=== PATIENT | female | born 1990 | race Caucasian/White ===

== ENCOUNTER 2019-08-03 22:29 | Emergency (ER) | payer OTHER, SELFPAY ==
--- OUTSIDE RECORDS SUMMARY | 2019-08-03 22:31 | XMS REPORT ---
:1990 Author Organization [facility] t Address [address] [place] [address] Dr. Johnson [address] [place] [id number] Care Team Providers Name Role Phone Unavailable Unavailable Unavailable Problems This patient has no known problems. Allergies, Adverse Reactions, Alerts This patient has no known allergies or adverse reactions. Medications This patient has no known medications.
[2019-08-03] MEDS ORDERED: PEN G BENZ LA 1.2MU/2ML SYRINGE IM ONE (23:09)
--- NOTE | 2019-08-03 23:18 | EDPHYS ---
Physician Documentation [facility] Name: Debra Sanchez Age: 29 yrs Sex: Female : 1990 Arrival Date: 08/03/2019 Time: 22:31 Bed 25 Private MD: ED Physician Ros Bender HPI: 08/02 22:41 This 29 yrs old Female presents to ER via Ambulatory with complaints of jmm Fever, Sore Throat. 22:41 The patient presents with sore throat. Onset: The symptoms/episode began/occurred jmm gradually, 3 day(s) ago. Modifying factors: The symptoms are alleviated by nothing, the symptoms are aggravated by nothing. Associated signs and symptoms: Pertinent positives: fever, Sore throat Pertinent negatives cough. This is a 29 year old female with no chronic medical conditions that presents to the ED with complaints of sore throat beginning 3 days ago with fever developing today. Patient denies cough. Denies shortness of breath. . 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 - Social history:: Smoking status: . ROS: 22:41 Constitutional: Positive for body aches, fever. jmm 22:41 ENT: Positive for sore throat. 22:41 Respiratory: Negative for cough, shortness of breath. 22:41 All other systems are negative. Exam: 22:41 Constitutional: This is a well developed, well nourished patient who is awake, alert, jmm and in no acute distress. Head/Face: atraumatic. Eyes: EOMI, no conjunctival erythema appreciated 22:41 Neck: Trachea midline, Supple Chest/axilla: Normal chest wall appearance and motion. 22:41 Respiratory: Normal respirations, no respiratory distress appreciated Abdomen/GI: Non distended, soft Back: Normal ROM Skin: General appearance color normal MS/ Extremity: Moves all extremities, no obvious deformities appreciated, no edema noted to the lower extremities Neuro: Awake and alert, normal gait Psych: Behavior is normal, Mood is normal, Patient is cooperative and pleasant 22:41 ENT: Posterior pharynx: Tonsils: bilaterally enlarged, with erythema, with exudate, Uvula: midline, erythema, that is moderate, exudate, that is moderate, peritonsillar mass, is not appreciated. 22:41 Cardiovascular: Rate: tachycardic, Rhythm: regular, Pulses: no pulse deficits are appreciated. Vital Signs: 22:41 BP 138 / 90; Pulse 107; Resp 17 S; Temp 99.1(O); Pulse Ox 100% on R/A; Weight 95.25 kg jd3 (R); Height 5 ft. 6 in. (167.64 cm) (R); Pain 4/10; 23:24 BP 119 / 71; Pulse 74; Resp 14; Temp 98.9(O); Pulse Ox 100% on R/A; Pain 0/10; ls4 22:41 Body Mass Index 33.89 (95.25 kg, 167.64 cm) jd3 MDM: 22:41 Patient medically screened. zunilda 23:15 Data reviewed: vital signs, nurses notes. Counseling: I had a detailed discussion with zunilda the patient and/or guardian regarding: the historical points, exam findings, and any diagnostic results supporting the discharge/admit diagnosis, lab results, the need for outpatient follow up, to return to the emergency department if symptoms worsen or persist or if there are any questions or concerns that arise at home. ED course: Patient is alert and non toxic in appearance in the ED. Patient is otherwise given strict return precautions. Patient understood and agrees with the plan of care. . 08/02 22:48 Order name: Strep; Complete Time: 23:12 [facility] 08/02 23:13 Order name: Throat Culture EDMS Administered Medications: 23:05 Drug: Bicillin L-A 1.2 million units Route: IM; Site: left ventrogluteal; ls4 23:22 Follow up: Response: No adverse reaction ls4 Disposition: 08/03 06:51 Co-signature as Attending Physician, Ros Bender MD. ma2 Disposition: 08/03/19 23:16 Discharged to Home. Impression: Acute pharyngitis. - Condition is Stable. - Discharge Instructions: Pharyngitis. - Medication Reconciliation Form, Thank You Letter, Antibiotic Education, Prescription Opioid Use form. - Follow up: Private Physician; When: 2 - 3 days; Reason: Recheck today's complaints, Continuance of care, Re-evaluation by your physician. Signatures: Dispatcher [employer] Nik Alford PA PA jmm Davies, Jonathon, RN RN jd3 Ros Bender MD MD ma2 Kayla Godinez RN RN ls4 Corrections: (The following items were deleted from the chart) 08/02 23:34 23:16 08/03/2019 23:16 Discharged to Home. Impression: Acute pharyngitis. Condition is ls4 Stable. Forms are Medication Reconciliation Form, Thank You Letter, Antibiotic Education, Prescription Opioid Use. Follow up: Private Physician; When: 2 - 3 days; Reason: Recheck today's complaints, Continuance of care, Re-evaluation by your physician. zunilda
--- NOTE | 2019-08-03 23:18 | ER ---
Nurse's Notes [facility] Name: Debra Sanchez Age: 29 yrs Sex: Female : 1990 Arrival Date: 08/03/2019 Time: 22:31 Bed 25 Private MD: Diagnosis: Acute pharyngitis Presentation: 08/02 22:39 Chief complaint: Patient states: "I am having throat pain with blisters in the back of jd3 my throat as well as fever.". Coronavirus screen: Patient denies a cough. Patient denies shortness of breath or difficulty breathing. Patient reports a measured and/or subjective temperature greater than 100.4F. Patient denies travel on a cruise ship or to a country the [facility] currently lists as an affected area. Patient denies contact with known and/or suspected case of COVID-19. Ebola Screen: Patient negative for fever greater than or equal to 101.5 degrees Fahrenheit, and additional compatible Ebola Virus Disease symptoms. Initial Sepsis Screen: Does the patient meet any 2 criteria? No. Patient's initial sepsis screen is negative. Does the patient have a suspected source of infection? No. Patient's initial sepsis screen is negative. Risk Assessment: Do you want to hurt yourself or someone else? Patient reports no desire to harm self or others. Onset of symptoms was August 03, 2019. 22:39 Method Of Arrival: Ambulatory jd3 22:39 Acuity: KYM 4 jd3 Triage Assessment: 23:25 General: Appears in no apparent distress. Behavior is calm, cooperative. Pain: ls4 Complains of pain in uvula, left aspect of posterior pharynx and right aspect of posterior pharynx. EENT: Throat is reddened has enlarged tonsils on right on left. 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 - Social history:: Smoking status: . Screenin:26 Abuse screen: Denies threats or abuse. Denies injuries from another. Nutritional ls4 screening: No deficits noted. Tuberculosis screening: No symptoms or risk factors identified. Fall Risk None identified. Assessment: 22:40 Respiratory: Airway is patent Respiratory effort is even, unlabored, Breath sounds are ls4 clear bilaterally. 23:27 Reassessment: Patient appears in no apparent distress at this time. Patient and/or ls4 family updated on plan of care and expected duration. Pain level reassessed. Patient is alert, oriented x 3, equal unlabored respirations, skin warm/dry/pink. Vital Signs: 22:41 BP 138 / 90; Pulse 107; Resp 17 S; Temp 99.1(O); Pulse Ox 100% on R/A; Weight 95.25 kg jd3 (R); Height 5 ft. 6 in. (167.64 cm) (R); Pain 4/10; 23:24 BP 119 / 71; Pulse 74; Resp 14; Temp 98.9(O); Pulse Ox 100% on R/A; Pain 0/10; ls4 22:41 Body Mass Index 33.89 (95.25 kg, 167.64 cm) j ED Course: 22:31 Patient arrived in ED. ds1 22:34 Nik Gruber PA is PHCP. [facility] 22:34 Ros Bender MD is Attending Physician. [facility] 22:40 Triage completed. jd3 22:42 Arm band placed on. jd3 22:46 Kayla Godinez, BROWN is Primary Nurse. ls4 23:26 Patient has correct armband on for positive identification. Bed in low position. Call ls4 light in reach. Side rails up X 1. quality assurance monitor on. Pulse ox on. NIBP on. Verbal reassurance given. 23:26 No provider procedures requiring assistance completed. Patient did not have IV access ls4 during this emergency room visit. Administered Medications: 23:05 Drug: Bicillin L-A 1.2 million units Route: IM; Site: left ventrogluteal; ls4 23:22 Follow up: Response: No adverse reaction ls4 Outcome: 23:16 Discharge ordered by . [facility] 23:28 Discharged to home ambulatory. ls4 23:28 Condition: good 23:28 Discharge instructions given to patient, Instructed on discharge instructions, follow up and referral plans. medication usage, Demonstrated understanding of instructions, follow-up care, medications. 23:34 Patient left the ED. ls4 Signatures: Nik Gruber PA PA jmm Sanford, Demi ds1 Veto Abebe RN RN jd3 Kayla Godinez RN RN ls4
[2019-08-03 23:43] VITALS: O2SAT 100
[2019-08-03 23:44] VITALS: BP 119/71; TEMP 98.9
== END 2019-08-03 23:34 | disposition home or self-care (01) ==
LOC: ER 22:29
DX: J02.9 Acute pharyngitis, unspecified (principal)
CPT/HCPCS: 87070; 87081; 96372; 99284; J0561

== ENCOUNTER 2022-10-20 10:23 | Emergency (ER) | payer SELFPAY ==
--- OUTSIDE RECORDS SUMMARY | 2022-10-20 10:52 | XMS REPORT | Continuity of Care Document ---
:1990 Author Organization [facility] t Address [address] [facility] [address] [place] [address] Care Team Providers Name Role Phone LYNETTE ROBERTSSHARIFCinda Henriquez Primary Care Physician Unavailable JOCELIN VIRAMONTES Attending Clinician Unavailable Payers Payer Name Policy Type Policy Number Effective Date Expiration Date Chun pate [id number] 2016 00:00:00 Problems This patient has no known problems. Allergies, Adverse Reactions, Alerts Allergy Allergy Status Severity Reaction(s) Onset Inactive Treating Comm ents Source Name Type Date Date Clinician NO KNOWN Drug Active [facility] Medications This patient has no known medications. Procedures This patient has no known procedures. Encounters Start End Encounter Admission Attending Care Care Encounter Source Date/Time Date/Time Type Type Clinicians Facility Department ID 2021-07-21 2021-07-21 Outpatient R MAXI VIRAMONTES [facility] [id number] [facility] 09:30:00 09:30:00 JOCELIN sharma [facility] Results This patient has no known results.
[2022-10-20 11:01] LABS: Specific Gravity 1.007 (1.005-1.030); Urine Bacteria None Seen /HPF (<20); Urine Bilirubin NEGATIVE (Negative); Urine Blood 3+ (Negative); Urine Clarity Clear (Clear); Urine Color Colorless (Yellow); Urine Glucose NEGATIVE (Negative); Urine Mucus Slight /HPF (None Seen); Urine Protein NEGATIVE (Negative); Urine RBC <5 /HPF (None Seen); Urine Urobilinogen Normal (Normal); Urine pH 6.5 (5.0-7.0)
[2022-10-20 11:05] LABS: Absolute Lymphocytes (CBC) 1.9 K/uL (0.7-4.9); Hematocrit 40.3 % (36.0-45.0); Lymphocytes % 16.4 % (15.3-44.8); MCV 94.6 fL (80-100); MPV 8.9 fL (7.6-11.3); RBC Red Blood Cell Count 4.26 M/uL (3.86-4.86)
[2022-10-20] MEDS ORDERED: MECLIZINE HCL 12.5 MG TAB ONE (11:08)
[2022-10-20] MEDS ORDERED: ONDANSETRON 4 MG/2 ML VIAL ONE (11:08)
[2022-10-20 11:21] LABS: BUN Blood Urea Nitrogen 11 mg/dL (7-18); Bicarbonate 28 mEq/L (21-32); Glomerular Filtration Rate 96 ml/min (=/>90); Glucose Level 115 mg/dL (74-106); Potassium 3.3 mEq/L (3.5-5.1); Sodium Level 137 mEq/L (136-145)
[2022-10-20 11:25] LABS: Troponin High Sensitivity < 3.0 pg/mL (<58.9)
--- NOTE | 2022-10-20 11:30 | RAD REPORT ---
EXAM DESCRIPTION: CT - Head Brain Wo Cont - 10/20/2022 11:25 am CLINICAL HISTORY: DIZZINESS Headache, drowsiness, dizziness COMPARISON: Head angio dated 10/20/2022; Neck Angio dated 10/20/2022 TECHNIQUE: All CT scans are performed using dose optimization technique as appropriate and may inclu de automated exposure control or mA/KV adjustment according to patient size. FINDINGS: No intracranial hemorrhage, hydrocephalus or extra-axial fluid collection.No areas of brai n edema or evidence of midline shift. The paranasal sinuses and mastoids are clear. The calvarium is intact. IMPRESSION: No acute intracranial abnormality.
--- NOTE | 2022-10-20 11:35 | RAD REPORT ---
EXAM DESCRIPTION: CT - Head angio - 10/20/2022 11:25 am CLINICAL HISTORY: DIZZINESS Headache, drowsiness, CVA symptomology COMPARISON: No comparisons TECHNIQUE: CT angiography of the head was performed with MIPs. All CT scans are performed using dose optimization technique as appropriate and may include automated exposure control or mA/KV adjustment according to patient size. FINDINGS: No evidence of large vessel occlusion. No evidence of aneurysm is detected. No flow-limiti ng stenosis or vascular malformation identified. Antegrade flow is seen in the vertebral arteries. The vertebral arteries are codominant. The visualized dural venous sinuses are patent. IMPRESSION: No significant flow abnormality is detected.
--- NOTE | 2022-10-20 11:38 | RAD REPORT ---
EXAM DESCRIPTION: CT - Neck Angio - 10/20/2022 11:25 am CLINICAL HISTORY: dizziness Headache, drowsiness, CVA symptomology COMPARISON: No comparisons TECHNIQUE: CT angiography of the neck vessels was performed with MIPs. All CT scans are performed using dose optimization technique as appropriate and may include automated exposure control or mA/KV adjustment according to patient size. FINDINGS: A left aortic arch is identified with normal three vessel configuration of the great vesse ls. No significant flow abnormality is seen of the common carotid bilaterally. No significant stenosis is identified involving the cervical segments of both internal carotid arteri es. Normal flow is seen within both vertebral arteries. Mild lower cervical degenerative changes. IMPRESSION: No significant flow abnormality of the neck vessels is identified. NASCET criteria used. Mild 0-49% stenosis Moderate 50-69% stenosis Severe 70-99% stenosis
--- NOTE | 2022-10-20 12:42 | EDPHYS ---
Physician Documentation [facility] Name: Debra Sanchez Age: 32 yrs Sex: Female : 1990 Arrival Date: 10/20/2022 Time: 10:23 Bed 19 Private MD: ED Physician Phu Cruz HPI: 10/20 10:43 This 32 yrs old Female presents to ER via Ambulatory with complaints of Dizziness. m 10:43 The patient presents with dizziness. Onset: The symptoms/episode began/occurred jmm acutely, just prior to arrival. Modifying factors: The symptoms are alleviated by nothing, the symptoms are aggravated by movement of head, standing up, changing position. Associated signs and symptoms: Pertinent negatives:. The patient has experienced similar episodes in the past. Historical: - Allergies: 10:54 No Known Allergies; ss - Home Meds: 10:54 None [Active]; ss - PMHx: 10:54 None; ss - PSHx: 10:54 Cholecystectomy; section; ss - Immunization history:: Adult Immunizations up to date, Client reports receiving the 2nd dose of the Covid vaccine. ROS: 10:43 Constitutional: Negative for fever, chills, and weight loss, Cardiovascular: Negative jmm for chest pain, palpitations, and edema, Respiratory: Negative for shortness of breath, cough, wheezing, and pleuritic chest pain, Abdomen/GI: Negative for abdominal pain, nausea, vomiting, diarrhea, and constipation. 10:43 Neuro: Positive for dizziness. 10:43 All other systems are negative. Exam: 10:43 Constitutional: This is a well developed, well nourished patient who is awake, alert, jmm and in no acute distress. Head/Face: atraumatic. 10:43 ENT: Moist Mucus Membranes Neck: Trachea midline, Supple Chest/axilla: Normal chest wall appearance and motion. Cardiovascular: Regular rate and rhythm. No edema appreciated Respiratory: Normal respirations, no respiratory distress appreciated Abdomen/GI: Non distended Back: Normal ROM Skin: General appearance color normal MS/ Extremity: Moves all extremities, no obvious deformities appreciated, no edema noted to the lower extremities Neuro: Awake and alert Psych: Behavior is normal, Mood is normal, Patient is cooperative and pleasant 10:43 Eyes: Nystagmus: Horizontal nystagmus noted, fatigable. Vital Signs: 10:51 BP 147 / 94; Pulse 87; Resp 16; Temp 97.7(TE); Pulse Ox 100% on R/A; Weight 104.33 kg; ss Height 5 ft. 6 in. ; Pain 0/10; 11:10 BP 147 / 94; Pulse 77; Resp 18; Pulse Ox 100% on R/A; ld1 10:51 Body Mass Index 37.12 (104.33 kg, 167.64 cm) ss 10:51 Pain Scale: Adult ss MDM: 10:43 Patient medically screened. [facility] 15:12 Differential diagnosis: CVA, TIA, vertigo, VBI. Data reviewed: vital signs, nurses [facility] notes, lab test result(s), EKG, radiologic studies, CT scan. Consideration of Admission/Observation Escalation of care including admission/observation considered. I considered the following discharge prescriptions or medication management in the emergency department Medications were administered in the Emergency Department. See MAR. Counseling: I had a detailed discussion with the patient and/or guardian regarding: the historical points, exam findings, and any diagnostic results supporting the discharge/admit diagnosis, lab results, radiology results, the need for outpatient follow up, to return to the emergency department if symptoms worsen or persist or if there are any questions or concerns that arise at home. 10/20 10:43 Order name: Basic Metabolic Panel; Complete Time: 11: [facility] 10/20 10:43 Order name: CBC with Diff; Complete Time: 11:13 [facility] 10/20 10:43 Order name: Troponin HS; Complete Time: 11: [facility] 10/20 10:43 Order name: Urinalysis w/ reflexes; Complete Time: 11: [facility] 10/20 10:43 Order name: PREGU; Complete Time: 11: [facility] 10/20 10:44 Order name: CT Head Brain wo Cont; Complete Time: 11:36 [facility] 10/20 10:44 Order name: CT Head Angio; Complete Time: 11:36 [facility] 10/20 10:44 Order name: CT Neck Angio; Complete Time: 11:55 [facility] 10/20 10:43 Order name: EKG; Complete Time: 10:44 [facility] 10/20 10:43 Order name: Cardiac monitoring; Complete Time: 10: [facility] 10/20 10:43 Order name: EKG - Nurse/Tech; Complete Time: 10:49 [facility] 10/20 10:43 Order name: IV Saline Lock; Complete Time: 10:55 [facility] 10/20 10:43 Order name: Labs collected and sent; Complete Time: 10:55 [facility] 10/20 10:43 Order name: O2 Per Protocol; Complete Time: 10:49 [facility] 10/20 10:43 Order name: O2 Sat Monitoring; Complete Time: 10:49 [facility] Administered Medications: 11:04 Drug: Ondansetron IVP 4 mg Route: IVP; Site: left antecubital; ld1 11:05 Drug: Meclizine PO 50 mg Route: PO; ld1 Disposition: 10/21 09:41 Co-signature as Attending Physician, Phu Cruz MD I reviewed the patient's care rt provided by the Advanced Practice Provider and agree with the diagnosis and treatment plan. Disposition Summary: 10/20/22 12:41 Discharge Ordered Location: Home [facility] Condition: Stable [facility] Diagnosis - Other peripheral vertigo [facility] Followup: [facility] - With: Private Physician - When: 2 - 3 days - Reason: Recheck today's complaints, Continuance of care, Re-evaluation by your physician Followup: [facility] - With: Judi Ramon MD - When: 2 - 3 days - Reason: Recheck today's complaints, Continuance of care, Re-evaluation by your physician Discharge Instructions: - Discharge Summary Sheet [facility] - Vertigo [facility] - How to Perform the Maribel Maneuver [facility] Forms: - Medication Reconciliation Form [facility] - Thank You Letter [facility] - Antibiotic Education [facility] - Prescription Opioid Use [facility] - [email or web address] [facility] Prescriptions: - Meclizine 25 mg Oral Tablet - take 1 tablet by ORAL route every 8 hours As needed; 30 tablet; Refills: 0, [facility] Product Selection Permitted Signatures: Dispatcher [employer] Nik Alford PA PA [facility] Lila Toro RN RN ss Sims, Lauren, RN RN ld1 Phu Cruz MD MD rt
--- NOTE | 2022-10-20 12:42 | ER ---
Nurse's Notes [facility] Name: Debra Sanchez Age: 32 yrs Sex: Female : 1990 Arrival Date: 10/20/2022 Time: 10:23 Bed 19 Private MD: Diagnosis: Other peripheral vertigo Presentation: 10/20 10:51 Chief complaint: Patient states: intermittent dizziness x months. Pt reports she had an ss episode of dizziness this morning that felt different. Coronavirus screen: Client denies travel out of the [place] in the last 14 days. Ebola Screen: Patient denies exposure to infectious person. Patient denies travel to an Ebola-affected area in the 21 days before illness onset. Initial Sepsis Screen: Does the patient meet any 2 criteria? No. Patient's initial sepsis screen is negative. Does the patient have a suspected source of infection? No. Patient's initial sepsis screen is negative. Risk Assessment: Do you want to hurt yourself or someone else? Patient reports no desire to harm self or others. Onset of symptoms is unknown. 10:51 Method Of Arrival: Ambulatory ss 10:51 Acuity: KYM 3 ss Triage Assessment: 12:50 General: Appears in no apparent distress. comfortable, Behavior is calm, cooperative, ld1 appropriate for age. Pain: Denies pain. Neuro: Level of Consciousness is awake, alert, obeys commands, Oriented to person, place, time, situation. Historical: - Allergies: 10:54 No Known Allergies; ss - Home Meds: 10:54 None [Active]; ss - PMHx: 10:54 None; ss - PSHx: 10:54 Cholecystectomy; section; ss - Immunization history:: Adult Immunizations up to date, Client reports receiving the 2nd dose of the Covid vaccine. Screenin:49 [facility] ED Fall Risk Assessment (Adult) History of falling in the last 3 months, ld1 including since admission No falls in past 3 months (0 pts). Abuse screen: Denies threats or abuse. Denies injuries from another. Nutritional screening: No deficits noted. Tuberculosis screening: No symptoms or risk factors identified. Vital Signs: 10:51 BP 147 / 94; Pulse 87; Resp 16; Temp 97.7(TE); Pulse Ox 100% on R/A; Weight 104.33 kg; ss Height 5 ft. 6 in. ; Pain 0/10; 11:10 BP 147 / 94; Pulse 77; Resp 18; Pulse Ox 100% on R/A; ld1 10:51 Body Mass Index 37.12 (104.33 kg, 167.64 cm) ss 10:51 Pain Scale: Adult ss ED Course: 10:25 Patient arrived in ED. rg4 10:27 Nik Gruber PA is PHCP. jmm 10:27 hPu Cruz MD is Attending Physician. jmm 10:54 Triage completed. ss 10:54 Lenora Almeida, BROWN is Primary Nurse. ld1 10:54 Arm band placed on right wrist. ss 10:55 Urinalysis w/ reflexes Sent. ld1 10:55 Inserted saline lock: 20 gauge in right antecubital area, using aseptic technique. ld1 Blood collected. 11:05 Basic Metabolic Panel Sent. ld1 11:05 CBC with Diff Sent. ld1 11:05 Troponin HS Sent. ld1 11:27 CT Head Brain wo Cont In Process Unspecified. EDMS 11:27 CT Head Angio In Process Unspecified. EDMS 11:27 CT Neck Angio In Process Unspecified. EDMS 12:42 Judi Ramon MD is Referral Physician. jmm 12:49 Patient has correct armband on for positive identification. Placed in gown. Bed in low ld1 position. Call light in reach. Side rails up X2. operation agent on. Pulse ox on. NIBP on. Door closed. Noise minimized. Warm blanket given. 12:49 No provider procedures requiring assistance completed. IV discontinued, intact, ld1 bleeding controlled, No redness/swelling at site. Administered Medications: 11:04 Drug: Ondansetron IVP 4 mg Route: IVP; Site: left antecubital; ld1 11:05 Drug: Meclizine PO 50 mg Route: PO; ld1 Medication: 12:50 VIS not applicable for this client. ld1 Outcome: 12:41 Discharge ordered by . jmm 12:49 Discharged to home ambulatory. ld1 12:49 Condition: stable 12:49 Discharge instructions given to patient, Instructed on discharge instructions, follow up and referral plans. medication usage, Demonstrated understanding of instructions, follow-up care, medications, Prescriptions given X 1. 12:50 Patient left the ED. ld1 Signatures: Dispatcher [employer] Nik Alford PA PA jmm Blanchard, Shelby, RN RN Jolene Gilbert4 Lenora Almeida, RN RN ld1
[2022-10-20 13:35] VITALS: BP 147/94; TEMP 97.7; O2SAT 100
--- NOTE | 2022-10-20 20:34 | EKG ---
Test Date: 2022-10-20 Test Time: 10:53:46 Radiographic Technologist: JESSICA MEASUREMENT RESULTS: Intervals: Rate: 100 IA: 164 QRSD: 92 QT: 344 QTc: 443 [place]: P: 61 IA: 164 QRS: 65 T: 41 INTERPRETIVE STATEMENTS: Normal sinus rhythm Normal ECG No previous ECG available for comparison Electronically Signed On 10-20-22 20:32:37 CDT by Migel Mcgill
== END 2022-10-20 12:50 | disposition home or self-care (01) ==
LOC: ER 10:23
DX: H81.399 Other peripheral vertigo, unspecified ear (principal)
CPT/HCPCS: 36415; 70450; 70496; 70498; 80048; 81001; 81025; 84484; 85025; 93005; J2405; J8597; Q9967

== ENCOUNTER 2023-07-28 21:46 | Emergency (ER) | payer SELFPAY ==
[2023-07-28] MEDS ORDERED: KETOROLAC 30 MG/ML INJ ONE (23:22)
[2023-07-28] MEDS ORDERED: ONDANSETRON 4 MG/2 ML VIAL ONE (23:22)
[2023-07-28] MEDS ORDERED: NA CHLORIDE 0.9% 1,000 ML ONE (23:23)
[2023-07-28] MEDS ORDERED: MORPHINE 4 MG/ML SYR ONE (23:23)
[2023-07-28 23:45] LABS: Absolute Eosinophils 0.1 K/uL (0-0.5); Absolute Lymphocytes (CBC) 1.2 K/uL (0.7-4.9); Absolute Monocytes 0.9 K/uL (0.1-1.3); Absolute Neutrophil 9.8 K/uL (1.8-8.0); Basophils % 0.4 % (0-1.3); Eosinophils % 0.6 % (0-4.4); Hematocrit 38.7 % (36.0-45.0); Hemoglobin 13.2 g/dL (12.0-15.0); Lymphocytes % 10.2 % (15.3-44.8); MCH 31.5 pg (27.0-35.0); MCHC 34.2 g/dL (32.0-36.0); MCV 92.1 fL (80-100); MPV 9.3 fL (7.6-11.3); Monocytes % 7.4 % (3.3-12.3); Neutrophils % 81.4 % (41.7-73.7); Platelets 301 thou/uL (152-406); RBC Red Blood Cell Count 4.21 M/uL (3.86-4.86); Red Cell Distribution Width 13.6 % (12.1-15.2)
[2023-07-29 00:11] LABS: Albumin 3.5 g/dL (3.4-5.0); Albumin/Globulin Ratio 0.9 (1.1-1.8); Anion Gap 5.9 mEq/L (5.0-15.0); Bilirubin Total 0.6 mg/dL (0.2-1.0); Globulin 3.8 g/dL (2.3-3.5); Potassium 2.9 mEq/L (3.5-5.1); Protein, Total 7.3 g/dL (6.4-8.2)
[2023-07-29 00:14] LABS: Specific Gravity 1.024 (1.005-1.030)
[2023-07-29 00:16] LABS: Calcium Oxalate Crystals- Ur Few /HPF (None Seen); Specific Gravity 1.024 (1.005-1.030); Urine Bacteria None Seen /HPF (<20); Urine Bilirubin NEGATIVE (Negative); Urine Blood 1+ (Negative); Urine Clarity Extremely Turbid (Clear); Urine Color Yellow (Yellow); Urine Culture Reflex Order NOT NEEDED; Urine Glucose NEGATIVE (Negative); Urine Ketones NEGATIVE (Negative); Urine Microscopic Reflex YN ORDER UMIC; Urine Mucus Slight /HPF (None Seen); Urine Nitrite NEGATIVE (Negative); Urine Protein TRACE (Negative); Urine Urobilinogen Normal (Normal); Urine WBC <5 /HPF (<5)
--- NOTE | 2023-07-29 01:55 | ER ---
Nurse's Notes [facility] Name: Debra Sanchez Age: 33 yrs Sex: Female : 1990 Arrival Date: 07/28/2023 Time: 21:46 Bed 17 Private MD: Diagnosis: Other viral enteritis;Acute Viral Gastroenteritis , Nausea, vomiting , diarrhea Presentation: 07/27 22:19 Chief complaint: Patient states: Abdominal cramping onset yesterday that got worse cm10 today. Pt also reports diarrhea and 1 episode of vomiting. Coronavirus screen: Client denies travel out of the [place] in the last 14 days. At this time, the client does not indicate any symptoms associated with coronavirus-19. Ebola Screen: Patient denies travel to an Ebola-affected area in the 21 days before illness onset. No symptoms or risks identified at this time. Initial Sepsis Screen: Does the patient meet any 2 criteria? HR > 90 bpm. Does the patient have a suspected source of infection? No. Patient's initial sepsis screen is negative. Risk Assessment: Do you want to hurt yourself or someone else? Patient reports no desire to harm self or others. Onset of symptoms was July 28, 2023. 22:19 Method Of Arrival: Ambulatory cm10 22:19 Acuity: KYM 3 cm10 Triage Assessment: 22:23 General: Appears in no apparent distress. comfortable, Behavior is calm, cooperative. cm10 Pain: Complains of pain in abdomen Pain currently is 10 out of 10 on a pain scale. Quality of pain is described as crampy, Pain began 2-3 days ago. Is intermittent. Neuro: No deficits noted. Level of Consciousness is awake, alert, obeys commands, Oriented to person, place, time, situation. Historical: - Allergies: 22:22 No Known Allergies; cm10 - Home Meds: 22:22 None [Active]; cm10 - PMHx: 22:22 None; cm10 - PSHx: 22:22 section; Cholecystectomy; cm10 - Immunization history:: Adult Immunizations up to date. - Infectious Disease History:: Denies. - Social history:: Smoking status: Patient denies any tobacco usage or history of. - Family history:: not pertinent. Screenin:33 [facility] ED Fall Risk Assessment (Adult) History of falling in the last 3 months, tm6 including since admission No falls in past 3 months (0 pts) Confusion or Disorientation No (0 pts) Intoxicated or Sedated No (0 pts) Impaired Gait No (0 pts) Mobility Assist Device Used No (0 pt) Altered Elimination No (0 pt) Score/Fall Risk Level 0 - 2 = Low Risk Oriented to surroundings, Maintained a safe environment. Abuse screen: Denies threats or abuse. Denies injuries from another. Nutritional screening: No deficits noted. Tuberculosis screening: No symptoms or risk factors identified. Assessment: 23:33 General: Appears in no apparent distress. Behavior is calm, cooperative. Pain: tm6 Complains of pain in abdomen Pain currently is 4 out of 10 on a pain scale. Quality of pain is described as sharp, shooting, Pain began 1 day ago. Is intermittent. Neuro: Level of Consciousness is awake, alert, obeys commands, Oriented to person, place, time, situation. Cardiovascular: Patient's skin is warm and dry. Respiratory: Airway is patent Respiratory effort is even, unlabored, Respiratory pattern is regular, symmetrical. GI: Abdomen is round non-distended, Bowel sounds present X 4 quads. Abd is soft and non tender X 4 quads. Reports upper abdominal pain, cramping, diarrhea, nausea, vomiting. : No signs and/or symptoms were reported regarding the genitourinary system. EENT: No signs and/or symptoms were reported regarding the EENT system. Derm: No signs and/or symptoms reported regarding the dermatologic system. Musculoskeletal: No signs and/or symptoms reported regarding the musculoskeletal system. 07/28 00:42 Reassessment: Patient and/or family updated on plan of care and expected duration. Pain tm6 level reassessed. Patient is alert, oriented x 3, equal unlabored respirations, skin warm/dry/pink. Patient states feeling better. 02:13 Reassessment: Patient and/or family updated on plan of care and expected duration. Pain tm6 level reassessed. Patient is alert, oriented x 3, equal unlabored respirations, skin warm/dry/pink. 02:13 Reassessment: Patient states feeling better. tm6 Vital Signs: 07/27 22:19 BP 152 / 112; Pulse 93; Resp 18 S; Temp 98.7(O); Pulse Ox 100% on R/A; Weight 113.4 kg cm10 (R); Height 5 ft. 6 in. ; Pain 10/10; 23:33 BP 112 / 75; Pulse 79; Pulse Ox 98% on R/A; Pain 4/10; tm6 0404 00:42 Pulse 77; Pulse Ox 96% on R/A; Pain 0/10; tm6 02:13 BP 137 / 87; Pulse 82; Resp 19; Temp 96.9(TE); Pulse Ox 100% on R/A; Pain 0/10; tm6 07/27 22:19 Body Mass Index 40.35 (113.40 kg, 167.64 cm) cm10 07/27 22:19 Pain Scale: Adult cm10 23:33 Pain Scale: Adult tm6 07/28 00:42 Pain Scale: Adult tm6 02:13 Pain Scale: Adult tm6 Bern Coma Score: 01:57 Eye Response: spontaneous(4). Motor Response: obeys commands(6). Verbal Response: sp4 oriented(5). Total: 15. ED Course: 07/27 21:49 Patient arrived in ED. gm2 21:56 Kt Diaz MD is Attending Physician. sp4 22:22 Triage completed. cm10 22:23 Arm band placed on Patient placed in waiting room. cm10 22:59 Jayne Prakash, RN is Primary Nurse. tm6 23:20 CBC with Diff Sent. tm6 23:20 CMP Sent. tm6 23:20 Lipase Sent. tm6 23:20 Test, Urine Sent. tm6 23:20 Urinalysis w/ reflexes Sent. tm6 23:33 Patient has correct armband on for positive identification. Placed in gown. Bed in low tm6 position. Call light in reach. Side rails up X2. Provided Education on: plan of care. Client placed on continuous cardiac and pulse oximetry monitoring. NIBP monitoring applied. Pulse ox on. NIBP on. Door closed. Noise minimized. Lights dimmed. 23:33 Inserted saline lock: 20 gauge in right antecubital area, using aseptic technique. tm6 07/28 00:30 CT Abd/Pelvis - IV Contrast Only In Process Unspecified. EDMS 01:53 Joe Michaels DO is Referral Physician. sp4 02:13 No provider procedures requiring assistance completed. IV discontinued, intact, tm6 bleeding controlled, No redness/swelling at site. Pressure dressing applied. Administered Medications: 07/27 23:30 Drug: Ketorolac IVP 30 mg IVP once Route: IVP; Site: right antecubital; tm6 23:30 Drug: Ondansetron IVP 4 mg IVP once; over 2 minutes Route: IVP; Site: right antecubital;tm6 23:30 Drug: NS 0.9% IV 1000 ml IV at 1 bolus Per protocol; 1000 mL bolus Route: IV; Rate: 1 tm6 bolus; Site: right antecubital; 07/28 00:52 Follow up: IV Status: Completed infusion; IV Intake: 1000ml tm6 02:12 Follow up: IV Status: Completed infusion; IV Intake: 1000ml tm6 07/27 23:33 Not Given (Patient Refused): morphineor iv 4 mg IVP once over 4 mins tm6 07/28 02:11 Drug: Potassium Chloride PO 40 mEq PO once Route: PO; tm6 02:12 Drug: Ondansetron PO 4 mg PO once Route: PO; tm6 02:12 Drug: Diphenoxylate-Atropine PO 2 tabs PO once Route: PO; tm6 02:12 Drug: Dicyclomine PO 20 mg PO once Route: PO; tm6 02:12 Drug: Ibuprofen PO 800 mg PO once Route: PO; tm6 Medication: 07/27 23:33 VIS not applicable for this client. tm6 Intake: 07/28 00:52 IV: 1000ml; Total: 1000ml. tm6 02:12 IV: 1000ml; Total: 2000ml. tm6 Outcome: 01:54 Discharge ordered by . sp4 02:13 Discharged to home ambulatory, tm6 02:13 Condition: stable 02:13 Discharge instructions given to patient, Instructed on discharge instructions, follow up and referral plans. medication usage, Demonstrated understanding of instructions, follow-up care, medications, Prescriptions given X 4, 02:14 Patient left the ED. tm6 Signatures: Dispatcher [employer] Kt Gunderson MD MD sp4 Fiorella Calvo RN RN cm10 Philomena Mcclellan 2 Jayne Prakash RN RN tm6
--- NOTE | 2023-07-29 01:55 | EDPHYS ---
Physician Documentation [facility] Name: Debra Sanchez Age: 33 yrs Sex: Female : 1990 Arrival Date: 07/28/2023 Time: 21:46 Bed 17 Private MD: ED Physician Kt Diaz HPI: 07/27 21:56 This 33 yrs old Other Female presents to ER via Unassigned with complaints of Abdominal sp4 Pain. 07/28 01:57 Pleasant 33-year-old female patient presents with acute onset periumbilical abdominal sp4 pain starting yesterday associated with several episodes of diarrhea and vomiting. Patient reports nonbloody watery diarrhea. History of cholecystectomy 8 years ago and history of . Pain is intermittent . Historical: - Allergies: 07/27 22:22 No Known Allergies; cm10 - Home Meds: 22:22 None [Active]; cm10 - PMHx: 22:22 None; cm10 - PSHx: 22:22 section; Cholecystectomy; cm10 - Immunization history:: Adult Immunizations up to date. - Infectious Disease History:: Denies. - Social history:: Smoking status: Patient denies any tobacco usage or history of. - Family history:: not pertinent. ROS: 07/28 01:57 Constitutional: Negative for fever, chills, and weight loss, positive nausea vomiting sp4 diarrhea and abdominal pain All other systems are negative, Exam: 01:57 Constitutional: This is a well developed, well nourished patient who is awake, alert, sp4 and in no acute distress. Head/Face: Normocephalic, atraumatic. Eyes: Pupils equal round and reactive to light, extra-ocular motions intact. Lids and lashes normal. Conjunctiva and sclera are not injected. Cornea within normal limits. Periorbital areas with no swelling, redness, or edema. ENT: Nares patent. No nasal discharge, no septal abnormalities noted. Tympanic membranes are normal and external auditory canals are clear. Oropharynx with no redness, swelling, or masses, exudates, or evidence of obstruction, uvula midline. Mucous membranes moist. Neck: Trachea midline, no thyromegaly or masses palpated, and no cervical lymphadenopathy. Supple, full range of motion without nuchal rigidity, or vertebral point tenderness. Chest/axilla: Normal chest wall appearance and motion. Nontender with no deformity. No lesions are appreciated. Cardiovascular: Regular rate and rhythm with a normal S1 and S2. No gallops, murmurs, or rubs. Normal PMI, no JVD. No pulse deficits. Respiratory: Lungs have equal breath sounds bilaterally, clear to auscultation and percussion. No rales, rhonchi or wheezes noted. No increased work of breathing, no retractions or nasal flaring. Abdomen/GI: Soft, with normal bowel sounds. No distension or tympany. No guarding or rebound. Periumbilical tenderness mostly on the right. Back: No spinal tenderness. No costovertebral tenderness. Skin: Warm, dry with normal turgor. Normal color with no rashes, no lesions, and no evidence of cellulitis. MS/ Extremity: Pulses equal, no cyanosis. Neurovascular intact. Full, normal range of motion. Neuro: Awake and alert, GCS 15, oriented to person, place, time, and situation. Cranial nerves II-XII grossly intact. Motor strength 5/5 in all extremities. Sensory grossly intact. Psych: Awake, alert, with orientation to person, place and time. Behavior, mood, and affect are within normal limits Vital Signs: 07/27 22:19 BP 152 / 112; Pulse 93; Resp 18 S; Temp 98.7(O); Pulse Ox 100% on R/A; Weight 113.4 kg cm10 (R); Height 5 ft. 6 in. ; Pain 10/10; 23:33 BP 112 / 75; Pulse 79; Pulse Ox 98% on R/A; Pain 4/10; tm6 07/28 00:42 Pulse 77; Pulse Ox 96% on R/A; Pain 0/10; tm6 02:13 BP 137 / 87; Pulse 82; Resp 19; Temp 96.9(TE); Pulse Ox 100% on R/A; Pain 0/10; tm6 07/27 22:19 Body Mass Index 40.35 (113.40 kg, 167.64 cm) cm10 07/27 22:19 Pain Scale: Adult cm10 23:33 Pain Scale: Adult tm6 07/28 00:42 Pain Scale: Adult tm6 02:13 Pain Scale: Adult tm6 Shikha Coma Score: 01:57 Eye Response: spontaneous(4). Motor Response: obeys commands(6). Verbal Response: sp4 oriented(5). Total: 15. MDM: 07/27 21:58 Patient medically screened. sp4 07/28 01:46 ED course: EXAM: CTAbdomen and Pelvis With Intravenous Contrast CLINICAL HISTORY: The sp4 patient is 33 years old and is Female; ABD PAIN, VOMITING TECHNIQUE: Axial computed tomography images of the abdomen and pelvis with intravenous contrast. Sagittal and coronal reformatted images were created and reviewed. This CT exam was performed using one or more of the following dose reduction techniques: automated exposure control, adjustment of the mA and/or kV according to patient size, and/or use of iterative reconstruction technique. COMPARISON: No relevant prior studies available. FINDINGS: Lung bases: Unremarkable. No mass. No consolidation. ABDOMEN: Liver: Unremarkable. No mass. Gallbladder and bile ducts: Gallbladder is surgically absent. No ductal dilation. Pancreas: Unremarkable. No mass. No ductal dilation. Spleen: Unremarkable. No splenomegaly. Adrenals: Unremarkable. No mass. Kidneys and ureters: Unremarkable. No solid mass. No hydronephrosis. Stomach and bowel: Mucosal thickening with adjacent fluid/stranding involving the distal small bowel in the lower abdomen suggestive of enteritis. No obstruction. PELVIS: Appendix: The appendix is normal. Bladder: Unremarkable. Reproductive: IUD in the uterus. ABDOMEN and PELVIS: Intraperitoneal space: Small amount of free fluid in the lower pelvis which may be physiologic. No free air. Bones/joints: No acute fracture. No dislocation. Soft tissues: Unremarkable. Vasculature: Unremarkable. No abdominal aortic aneurysm. Lymph nodes: Unremarkable. No enlarged lymph nodes. IMPRESSION: Mucosal thickening with adjacent fluid/stranding involving the distal small bowel in the lower abdomen suggestive of enteritis. . 01:57 Differential Diagnosis altered mental status, sepsis, flu, Enteritis, . Data reviewed: sp4 vital signs, nurses notes, lab test result(s), radiologic studies, CT scan. Consideration of Admission/Observation Escalation of care including admission/observation considered. ED course: Will advise clear liquid diet for 24 hours. 2 days bedrest at home. Ondansetron for nausea, Lomotil for diarrhea, Bentyl for stomach cramps. Ibuprofen as needed pain, will recommend supplementing bananas for hypokalemia . 04/03 21:58 Order name: CBC with Diff; Complete Time: 01:21 sp4 07/27 21:58 Order name: CMP; Complete Time: 01:21 sp4 07/27 21:58 Order name: Lipase; Complete Time: 01:21 sp4 07/27 21:58 Order name: Test, Urine; Complete Time: 01:21 sp4 07/27 21:58 Order name: Urinalysis w/ reflexes; Complete Time: 01:21 sp4 07/27 22:35 Order name: CT Abd/Pelvis - IV Contrast Only sp4 07/27 21:58 Order name: IV Saline Lock; Complete Time: 23:21 sp4 07/27 21:58 Order name: Labs collected and sent; Complete Time: 23:21 sp4 Administered Medications: 07/27 23:30 Drug: Ketorolac IVP 30 mg IVP once Route: IVP; Site: right antecubital; tm6 23:30 Drug: Ondansetron IVP 4 mg IVP once; over 2 minutes Route: IVP; Site: right antecubital;tm6 23:30 Drug: NS 0.9% IV 1000 ml IV at 1 bolus Per protocol; 1000 mL bolus Route: IV; Rate: 1 tm6 bolus; Site: right antecubital; 07/28 00:52 Follow up: IV Status: Completed infusion; IV Intake: 1000ml tm6 02:12 Follow up: IV Status: Completed infusion; IV Intake: 1000ml tm6 07/27 23:33 Not Given (Patient Refused): morphineor iv 4 mg IVP once over 4 mins tm6 07/28 02:11 Drug: Potassium Chloride PO 40 mEq PO once Route: PO; tm6 02:12 Drug: Ondansetron PO 4 mg PO once Route: PO; tm6 02:12 Drug: Diphenoxylate-Atropine PO 2 tabs PO once Route: PO; tm6 02:12 Drug: Dicyclomine PO 20 mg PO once Route: PO; tm6 02:12 Drug: Ibuprofen PO 800 mg PO once Route: PO; tm6 Disposition Summary: 07/29/23 01:54 Discharge Ordered Problem: new sp4 Symptoms: have improved sp4 Condition: Stable sp4 Diagnosis - Other viral enteritis sp4 - Acute Viral Gastroenteritis , Nausea, vomiting , diarrhea sp4 Followup: sp4 - With: Joe Michaels DO - When: 7 - 10 days - Reason: Recheck today's complaints Discharge Instructions: - Discharge Summary Sheet sp4 - Clear Liquid Diet, Adult, [id number] sp4 Forms: - Patient Portal Instructions sp4 Prescriptions: - ondansetron 8 mg Oral Tablet,disintegrating - take 1 tablet ORAL route every 6 hours PRN nausea; 30 tablet; Refills: 0, sp4 Product Selection Permitted - Ibuprofen 800 mg Oral Tablet - take 1 tablet ORAL route every 8 hours As needed take with food; 30 tablet; sp4 Refills: 0, Product Selection Permitted - Lomotil 2.5-0.025 mg Oral tablet - take 1 tablet ORAL route every 6 hours As needed PRN diarrhea; 30 tablet; sp4 Refills: 0, Product Selection Permitted - dicyclomine 20 mg Oral tablet - take 1 tablet ORAL route every 6 hours PRN abdominal pain; 30 tablet; Refills: sp4 0, Product Selection Permitted Signatures: Dispatcher [employer] Kt Gunderson MD MD sp4 Fiorella Calvo RN RN cm10 Jayne Prakash RN RN tm6
[2023-07-29] MEDS ORDERED: DICYCLOMINE HCL 10 MG CAP ONE (01:57)
[2023-07-29] MEDS ORDERED: POTASSIUM CL SA 10 MEQ TAB PO ONE ×2 (01:57→02:06)
[2023-07-29] MEDS ORDERED: IBUPROFEN 400 MG TAB ONE (01:57)
[2023-07-29] MEDS ORDERED: ONDANSETRON 4 MG (ODT) TAB ONE (01:57)
[2023-07-29] MEDS ORDERED: DIPHENOX/ATROP SULF 1 TAB PO ONE (01:58)
[2023-07-29 02:31] VITALS: BP 137/87; TEMP 96.9; O2SAT 100
--- NOTE | 2023-07-29 12:08 | RAD REPORT ---
EXAM DESCRIPTION: CT - Abdomen Pelvis W Contrast - 07/29/2023 6:25 am CLINICAL HISTORY: The patient is 33 years old and is Female; ABD PAIN, VOMITING TECHNIQUE: Axial computed tomography images of the abdomen and pelvis with intravenous contrast. S agittal and coronal reformatted images were created and reviewed. This CT exam was performed using one or more of the following dose reduction techniques: automated exposure control, adjustment of t he mA and/or kV according to patient size, and/or use of iterative reconstruction technique. COMPARISON: No relevant prior studies available. FINDINGS: Lung bases: Unremarkable. No mass. No consolidation. ABDOMEN: Liver: Unremarkable. No mass. Gallbladder and bile ducts: Gallbladder is surgically absent. No ductal dilation. Pancreas: Unremarkable. No mass. No ductal dilation. Spleen: Unremarkable. No splenomegaly. Adrenals: Unremarkable. No mass. Kidneys and ureters: Unremarkable. No solid mass. No hydronephrosis. Stomach and bowel: Mucosal thickening with adjacent fluid/stranding involving the distal small andreas wel in the lower abdomen suggestive of enteritis. No obstruction. PELVIS: Appendix: The appendix is normal. Bladder: Unremarkable. Reproductive: IUD in the uterus. ABDOMEN and PELVIS: Intraperitoneal space: Small amount of free fluid in the lower pelvis which may be physiologic. No free air. Bones/joints: No acute fracture. No dislocation. Soft tissues: Unremarkable. Vasculature: Unremarkable. No abdominal aortic aneurysm. Lymph nodes: Unremarkable. No enlarged lymph nodes. IMPRESSION: Mucosal thickening with adjacent fluid/stranding involving the distal small bowel in the lower abdomen suggestive of enteritis. Electronically signed by: Robert Elkins MD 07/29/2023 12:55 AM CDT Due to temporary technical issues with the PACS/Fluency reporting system, reports are being signed by the in house radiologist without review as a courtesy to ensure prompt reporting. The interpreting r adiologist is fully responsible for the content of the report.
== END 2023-07-29 02:14 | disposition home or self-care (01) ==
LOC: ER 21:46
DX: A08.39 Other viral enteritis (principal)
CPT/HCPCS: 36415; 74177; 80053; 81001; 81025; 83690; 85025; 96361; 96374; 96375; 99284; J2405; J7030; Q0162; Q9967

== ENCOUNTER 2024-01-26 13:30 | Emergency (ER) | payer SELFPAY ==
--- OUTSIDE RECORDS SUMMARY | 2024-01-26 13:33 | XMS REPORT | Continuity of Care Document ---
Author Name Unknown Address [address] [facility] [address] [place] [address] [facility] thconnect Address [address] [facility] [place] [address] Care Team Providers Care Inlayer Name Role Phone VON ROBERTS Primary Care Physician CHARLOTTE Mendez Attending Clinician Unavail able Jaja BEDOLLA Attending Clinician Unavailable Jaja BEDOLLA Attending Clinician Unavailable Jaja Fatima Attending Clinician [phone] SALOME CHANG Attending Clinician Unavaila ble Doctor Unassigned, [place] Attending Clinician U Charlotte Benoit Attending Clinician + Salome Chang CNM Attending Clinician [phone] [place] Attending Clinician Rell Gardner DO Attending Clinician [phone] Payers Payer Name Policy Type Policy Number Effective Date Expirati on Date Source Problems Condition Name Condition Details Condition Category Status Onset Date Resolution Date Last Treatment Date Treating Clinician Comments Source Morbid obesity Morbid obesity Disease Active 2022-04 00:00: 00 [facility] Decline flu vaccine Decline flu vaccine Disease Active 2022-04 00:00: 00 [facility] CHEST PAIN/SOB CHEST PAIN/SOB Active 10/03/2015 Andrew Beltre Diagnosis Active 10-02 00:00: 00 2015-10-03 12:14:00 Giancarlo Beltre IUD (intrauter ine device) in place IUD (intrauter ine device) in place Disease Active 2014-04 00:00: 00 Overview: Formattin g of this note might be different from the original. Kyleena IUD placed 2 [facility] Obesity (BMI 30-39.9) Obesity (BMI 30-39.9) Disease Resolve d 3- 00:00: 00 2023-03-15 00:00:00 2023-03-15 19:17:08 [facility] Contracept jennifer management Contracept jennifer management Disease Resolve d 7-31 00:00: 00 2023-03-15 00:00:00 2023-03-15 19:16:45 [facility] Well woman exam Well woman exam Disease Resolve d 6- 00:00: 00 2023-03-15 00:00:00 2023-03-15 19:16:44 [facility] Vaginal bleeding Vaginal bleeding Disease Resolve d 2014-04 00:00: 00 2023-03-15 00:00:00 2023-03-15 19:16:42 [facility] Obesity Obesity Disease Resolve d 06-29 00:00: 00 2023-03-15 00:00:00 2023-03-15 19:17:05 Overview: Formattin g of this note might be different from the original. ICD10 Diagnosis Term Cnc Manager Utility [facility] History of anxiety History of anxiety Disease Resolve d 06-29 00:00: 00 2018-01-11 00:00:00 2018-01-11 16:24:44 [facility] General counseling and advice for contracept jennifer management General counseling and advice for contracept jennifer management Disease Resolve d 06-29 00:00: 00 2015-02-06 00:00:00 2021-11-09 00:34:55 [facility] 39 weeks gestation of 39 weeks gestation of Disease Resolve d 2013-04 2-27 00:00: 00 2014-06-29 00:00:00 2014-06-29 15:11:28 [facility] Female genital symptoms Female genital symptoms Disease Resolve d 2013-04 2-16 00:00: 00 2014-06-29 00:00:00 2021-11-09 00:33:38 [facility] History of maternal fourth degree perineal laceration , currently History of maternal fourth degree perineal laceration , currently Disease Resolve d 2013-04 00:00: 00 2014-06-29 00:00:00 2014-06-29 15:11:45 [facility] Obesity complicati ng , childbirth , or puerperium , antepartum Obesity complicati ng , childbirth , or puerperium , antepartum Disease Resolve d 2013-04 0- 00:00: 00 2014-06-29 00:00:00 2021-11-09 00:32:46 [facility] Lower back pain Lower back pain Disease Resolve d 2013-04 0- 00:00: 00 2014-06-29 00:00:00 2014-06-29 15:11:47 [facility] Multiparit y Multiparit y Disease Resolve d 2013-04 025 00:00: 00 2014-06-29 00:00:00 2014-06-29 15:11:49 [facility] Elevated blood pressure reading without diagnosis of hypertensi on Elevated blood pressure reading without diagnosis of hypertensi on Disease Resolve d 2013-04 0-25 00:00: 00 2014-06-29 00:00:00 2014-06-29 15:11:35 [facility] Supervisio n of other high-risk Supervisio n of other high-risk Disease Resolve d 8-29 00:00: 00 2014-06-29 00:00:00 2021-11-09 00:31:55 [facility] GBS (group B streptococ cus) UTI complicati ng GBS (group B streptococ cus) UTI complicati ng Disease Resolve d 09-08 00:00: 00 2014-06-29 00:00:00 2021-11-09 00:30:19 [facility] Anxiety Anxiety Disease Resolve d 10-11 00:00: 00 2014-06-29 00:00:00 2014-06-29 15:11:32 [facility] Heart palpitatio ns Heart palpitatio ns Disease Resolve d 09-30 00:00: 00 2014-02-17 00:00:00 2014-02-17 08:24:03 [facility] UTI (lower urinary tract infection) UTI (lower urinary tract infection) Disease Resolve d 01-05 00:00: 00 2014-01-12 00:00:00 2014-01-12 12:55:58 [facility] Obese Obese Disease Resolve d 11-01 00:00: 00 2014-01-05 00:00:00 2014-01-05 18:52:50 [facility] Keloid Keloid Disease Resolve d 07-18 00:00: 00 2014-01-05 00:00:00 2014-01-05 18:52:43 [facility] Immune to rubella Immune to rubella Disease Resolve d 10-03 00:00: 00 2014-01-05 00:00:00 2014-01-05 18:52:41 [facility] SOB (shortness of breath) SOB (shortness of breath) Disease Resolve d 09-30 00:00: 00 2014-01-05 00:00:00 2014-01-05 18:52:45 [facility] Contracept ion management Contracept ion management Disease Resolve d 10-26 00:00: 00 2013-09-06 00:00:00 2013-09-06 15:36:24 [facility] Dizziness and giddiness Dizziness and giddiness Disease Resolve d 09-30 00:00: 00 2013-09-06 00:00:00 2013-09-06 15:36:19 [facility] Headache Headache Disease Resolve d 09-30 00:00: 00 2013-09-06 00:00:00 2021-11-09 00:24:56 [facility] Implanon removal Implanon removal Disease Resolve d 09-30 00:00: 00 2013-09-06 00:00:00 2021-11-09 00:24:56 [facility] Other general counseling and advice for contracept jennifer management Other general counseling and advice for contracept jennifer management Disease Resolve d 09-30 00:00: 00 2013-09-06 00:00:00 2013-09-06 15:36:12 [facility] Fourth-deg ree perineal laceration in Fourth-deg ree perineal laceration in Disease Resolve d 09-21 00:00: 00 2012-09-30 00:00:00 2021-11-09 00:17:00 [facility] Need for rubella vaccinatio n Need for rubella vaccinatio n Disease Resolve d 09-20 00:00: 00 2012-09-30 00:00:00 2012-09-30 16:14:24 [facility] Teen Teen Disease Resolve d 09-20 00:00: 00 2012-09-30 00:00:00 2012-09-30 16:14:15 [facility] Status post induction of labor Status post induction of labor Disease Resolve d 09-21 00:00: 00 2009-09-21 00:00:00 2021-11-09 00:17:00 [facility] Supervisio n of normal first Supervisio n of normal first Disease Resolve d 09-20 00:00: 00 2009-09-21 00:00:00 [facility] History of Past Illness Condition Name Condition Details Condition Category Status Onset Date Resolution Date Last Treatment Date Treating Clinician Comments Source Discharge Diagnosis: Acute chest pain Discharge Diagnosis: Acute chest pain 10/03/2015 10/06/2015 [facility] [place] Problem 10-02 05:00: 00 2015-10-06 04:04:30 2015-10-06 04:04:30 Giancarlo Beltre Allergies, Adverse Reactions, Alerts Allergy Name Allergy Type Status Severity Reaction(s) Onset Date Inactive Date Treating Clinician Comments Source NO KNOWN ALLERGIE S Drug Class Active [facility] Social History Social Habit Start Date Stop Date Quantity Comments Source [facility] SDOH Alcohol Frequency [facility] History SDOH Alcohol Std Drinks [facility] History SDOH Alcohol Binge [facility] Alcoholic beverage intake 2024-01-02 00:00:00 2024-01-02 00:00:00 Current drinker of alcohol (finding) [facility] Tobacco use and exposure 2023-03-15 00:00:00 2023-03-15 00:00:00 Smokeless tobacco non-user [facility] Alcohol intake 2023-03-15 00:00:00 2023-03-15 00:00:00 Current drinker of alcohol (finding) [facility] Exposure to SARS-CoV-2 (event) 2021-06-28 00:00:00 2021-07-28 09:20:00 Not sure [facility] History of Social function 2018-11-03 00:00:00 2018-11-03 00:00:00 [facility] Alcohol Comment 2018-01-11 00:00:00 2018-01-11 00:00:00 socially [facility] Sex assigned at 1990 00:00:00 1990 00:00:00 [facility] Smoking Status Start Date Stop Date Source Never smoked tobacco [facility] Medications Ordered Medication Name Filled Medication Name Start Date Stop Date Current Medication? Ordering Clinician Indication Dosage Frequency Signature (SIG) Comments Components Source methylpredn isolone sod succ (SOLU-MEDRO L) injection 125 mg 01-01 15:15: 00 01-01 14:06 :00 No 125mg 125 mg, Intramuscu lar, ONCE, 1 dose, On 01/02/24 at 1015, TOÑITO [facility] predniSONE 20 mg tablet 01-01 00:00: 00 Yes [id number] 1 PO BID x 4 days [facility] methocarbam oL 500 mg tablet 01-01 00:00: 00 Yes [id number] 500mg Take 1 tablet by mouth 4 (four) times daily. [facility] amoxicillin -clavulanat e (AUGMENTIN) 875-125 mg per tablet 2022-04 00:00: 00 03-26 05:59 :00 No [id number] 1{tbl} Take 1 tablet by mouth in the morning and 1 tablet in the evening. Do all this for 10 days. [facility] levonorgest reL (KYLEENA) IUD 1 Device 07-28 16:45: 00 07-28 15:38 :00 No [id number] 1{devic e} [facility] No known medications 07-28 10:39: 22 No [facility] Sodium Chloride 0.154 MEQ/ML Injectable Solution 10-02 16:37: 00 No 1,000 mL, 1000 ml/hr, Infuse Over: 1 hr, Route: IV, 1,000, Drug form: INJ, ONCE, Priority: STAT, Dosing Weight 86.364 kg, Start date: 10/03/15 11:37:00 CDT, Duration: 1 doses or times, Stop date: 10/03/15 11:37:00 CDT Giancarlo Beltre Saline Flush 0.9% 10-02 16:37: 00 No Notes: (Same as: BD Posiflush) Giancarlo Beltre Immunizations Ordered Immunization Name Filled Immunization Name Date Status Comments Source TDAP 2014-02-12 00:00:00 Completed [facility] TDAP 2014-02-12 00:00:00 Completed [facility] MMR 2009-09-22 00:00:00 Completed [facility] MMR 2009-09-22 00:00:00 Completed [facility] Td 2006-04-26 00:00:00 Completed [facility] Td 2006-04-26 00:00:00 Completed [facility] MMR Unknown Completed [facility] TD, NOS Unknown Completed [facility] TDAP Unknown Completed [facility] MMR Unknown Completed [facility] TD, NOS Unknown Completed [facility] TDAP Unknown Completed [facility] MMR Unknown Completed [facility] TD, NOS Unknown Completed [facility] TDAP Unknown Completed [facility] MMR Unknown Completed [facility] TD, NOS Unknown Completed [facility] TDAP Unknown Completed [facility] MMR Unknown Completed [facility] TD, NOS Unknown Completed [facility] TDAP Unknown Completed [facility] MMR Unknown Completed [facility] TD, NOS Unknown Completed [facility] TDAP Unknown Completed [facility] MMR Unknown Completed [facility] TD, NOS Unknown Completed [facility] TDAP Unknown Completed [facility] MMR Unknown Completed [facility] TD, NOS Unknown Completed [facility] TDAP Unknown Completed [facility] MMR Unknown Completed [facility] TD, NOS Unknown Completed [facility] TDAP Unknown Completed [facility] MMR Unknown Completed [facility] TD, NOS Unknown Completed [facility] TDAP Unknown Completed [facility] MMR Unknown Completed [facility] TD, NOS Unknown Completed [facility] TDAP Unknown Completed [facility] MMR Unknown Completed [facility] TD, NOS Unknown Completed [facility] TDAP Unknown Completed [facility] MMR Unknown Completed [facility] TD, NOS Unknown Completed [facility] TDAP Unknown Completed [facility] Vital Signs Vital Name Observation Time Observation Value Comments S ource Systolic blood pressure 2024-01-02 13:19:00 147 mm[Hg] [facility] Diastolic blood pressure 2024-01-02 13:19:00 93 mm[Hg] [facility] Heart rate 2024-01-02 13:19:00 84 /min [facility] Body temperature 2024-01-02 13:19:00 36.83 Maryanne [facility] Respiratory rate 2024-01-02 13:19:00 14 /min [facility] Body height 2024-01-02 13:19:00 170.2 cm [facility] Body weight 2024-01-02 13:19:00 114.715 kg [facility] BMI 2024-01-02 13:19:00 39.61 kg/m2 [facility] Oxygen saturation in Arterial blood by Pulse oximetry 2024-01-02 13:19:00 99 /min [facility] Systolic blood pressure 2023-03-22 14:19:00 140 mm[Hg] [facility] Diastolic blood pressure 2023-03-22 14:19:00 85 mm[Hg] [facility] Heart rate 2023-03-22 14:13:00 89 /min [facility] Body temperature 2023-03-22 14:13:00 35.89 Maryanne [facility] Respiratory rate 2023-03-22 14:13:00 18 /min [facility] Body height 2023-03-22 14:13:00 165.1 cm [facility] Body weight 2023-03-22 14:13:00 113.762 kg [facility] BMI 2023-03-22 14:13:00 41.74 kg/m2 [facility] Systolic blood pressure 2023-03-15 19:25:00 142 mm[Hg] [facility] Diastolic blood pressure 2023-03-15 19:25:00 102 mm[Hg] [facility] Heart rate 2023-03-15 19:25:00 97 /min [facility] Body temperature 2023-03-15 19:22:00 36.11 Maryanne [facility] Respiratory rate 2023-03-15 19:22:00 18 /min [facility] Body height 2023-03-15 19:22:00 165.1 cm [facility] Body weight 2023-03-15 19:22:00 113.654 kg [facility] BMI 2023-03-15 19:22:00 41.70 kg/m2 [facility] Systolic blood pressure 2021-07-28 13:58:00 112 mm[Hg] [facility] Diastolic blood pressure 2021-07-28 13:58:00 76 mm[Hg] [facility] Heart rate 2021-07-28 13:58:00 77 /min [facility] Body temperature 2021-07-28 13:58:00 36.61 Maryanne [facility] Respiratory rate 2021-07-28 13:58:00 20 /min [facility] Body height 2021-07-28 13:58:00 165.1 cm [facility] Body weight 2021-07-28 13:58:00 103.692 kg [facility] BMI 2021-07-28 13:58:00 38.04 kg/m2 [facility] Respitory Rate 2015-10-03 18:01:00 [facility] Heart Rate 2015-10-03 18:01:00 [facility] Systolic (mm Hg) 2015-10-03 18:01:00 [facility] Diastolic (mm Hg) 2015-10-03 18:01:00 [facility] Temperature Oral (F) 2015-10-03 18:01:00 97.6 F [facility] Weight 2015-10-03 16:23:00 [facility] Respitory Rate 2015-10-03 16:23:00 [facility] Temperature Oral (F) 2015-10-03 16:23:00 98.1 F [facility] Heart Rate 2015-10-03 16:23:00 [facility] Systolic (mm Hg) 2015-10-03 16:23:00 [facility] Diastolic (mm Hg) 2015-10-03 16:23:00 [facility] Procedures Procedure Date / Time Performed Performing Clinicia n Source CONSENT/REFUSAL FOR DIAGNOSIS AND TREATMENT 2023-03-15 19:04:19 Doctor Unassigned, [place] [facility] DISCLOSURE AND CONSENT, MEDICAL AND SURGICAL PROCEDURES 2021-07-28 05:01:00 Doctor Unassigned, [place] [facility] POCT TEST 2021-07-28 00:00:00 Rupert Singleton [facility] Encounters Start Date/Time End Date/Time Encounter Type Admission Type Attending Clinicians Care Facility Care Department Encounter ID Source 2024-01-02 08:20:00 2024-01-02 09:09:00 Emergency X Jaja BEDOLLA K [facility] E[facility] [id number] [facility] 2024-01-02 08:20:00 2024-01-02 09:09:00 Emergency Jaja Bedolla AT [facility] [id number] 350.1.13.10 4.2.7.2.686 [id number] [facility] 2023-06-02 00:00:00 2023-06-02 00:00:00 Patient Secure Msg Doctor Unassigned, [place] [facility] [employer]ING APPLICATIONS ENGINEER [facility] & CHILD [facility] [id number] 350.1.13.10 4.2.7.2.686 [id number] [facility] 2023-05-27 00:00:00 2023-05-27 00:00:00 Letter (Out) Charlotte Singleton [facility] MANUFA[employer]ING APPLICATIONS ENGINEER [facility] CHILD [facility] [id number] 350.1.13.10 4.2.7.2.686 [id number] [facility] 2023-05-17 00:00:00 2023-05-17 00:00:00 Outpatient R SALOME CHANG [facility] [id number] [facility] 2023-04-15 00:00:00 2023-04-15 00:00:00 Telephone Charlotte Singleton [facility] MANUFA[employer]ING APPLICATIONS ENGINEER [facility] CHILD [facility] [id number] 350.1.13.10 4.2.7.2.686 [id number] [facility] 2023-04-12 08:15:00 2023-04-12 08:15:00 Outpatient R CHARLOTTE SINGLETON [facility] [id number] [facility] 2023-03-22 08:00:00 2023-03-22 08:36:44 Outpatient R CHARLOTTE SINGLETON [facility] [id number] [facility] 2023-03-22 08:00:00 2023-03-22 08:36:44 Office Visit Charlotte Singleton [facility] [employer] APPLICATIONS ENGINEER [facility] CHILD [facility] [id number] 350.1.13.10 4.2.7.2.686 [id number] [facility] 2023-03-22 07:30:00 2023-03-22 07:30:00 Outpatient R CHARLOTTE SINGLETON [facility] [id number] [facility] 2023-03-22 00:00:00 2023-03-22 00:00:00 Patient Secure Msg Doctor Unassigned, [place] [facility] 1..114 350.1.13.10 4.2.7.2.686 [id number] [facility] 2023-03-15 13:00:00 2023-03-15 14:04:43 Outpatient R SALOME CHANG [facility] [id number] [facility] 2023-03-15 13:00:00 2023-03-15 14:04:43 Office Visit Salome Chang [facility] MANUFA[employer]ING APPLICATIONS ENGINEER [facility] & CHILD [facility] 1..114 350.1.13.10 4.2.7.2.686 [id number] [facility] 2023-03-15 00:00:00 2023-03-15 00:00:00 Orders Only Doctor Unassigned, [place] [facility] 1..114 350.1.13.10 4.2.7.2.686 [id number] [facility] 2023-03-09 00:00:00 2023-03-09 00:00:00 Telephone Charlotte Singleton [facility] MANUFA[employer]ING APPLICATIONS ENGINEER [facility] & CHILD [facility] 1.0.114 350.1.13.10 4.2.7.2.686 [id number] [facility] 2023-03-09 00:00:00 2023-03-09 00:00:00 Patient Secure Msg Charlotte Singleton [facility] MANUFA[employer]URING APPLICATIONS ENGINEER [facility] CHILD [facility] 1..114 350.1.13.10 4.2.7.2.686 [id number] [facility] 2023-02-10 00:00:00 2023-02-10 00:00:00 Patient Secure Brandon Mosqueratrisha Boyle [facility] MANUFA[employer]URING APPLICATIONS ENGINEER [facility] CHILD [facility] 1.840.114 350.1.13.10 4.2.7.2.686 [id number] [facility] 2021-12-19 00:00:00 2021-12-19 00:00:00 Patient Secure Von Salinas [facility] MANUFA[employer]URING APPLICATIONS ENGINEER [facility] CHILD [facility] 1..114 350.1.13.10 4.2.7.2.686 [id number] [facility] 2021-09-08 09:15:00 2021-09-08 09:15:00 Outpatient R CHARLOTTE SINGLETON [facility] [id number] [facility] 2021-07-28 09:00:00 2021-07-28 10:06:18 Outpatient R CHARLOTTE SINGLETON [facility] [id number] [facility] 2021-07-28 09:00:00 2021-07-28 10:06:18 Office Visit Charlotte Singleton [facility] MANUFA[employer]URING APPLICATIONS ENGINEER [facility] CHILD [facility] 1..114 350.1.13.10 4.2.7.2.686 [id number] [facility] 2021-07-28 09:00:00 2021-07-28 10:06:18 Outpatient R CHARLOTTE SINGLETON [facility] [id number] [facility] 2021-07-28 00:00:00 2021-07-28 00:00:00 Orders Only Doctor Unassigned, [place] [facility] 1..114 350.1.13.10 4.2.7.2.686 [id number] [facility] 2021-07-21 09:30:00 2021-07-21 10:33:23 Outpatient R CHARLOTTE SINGLETON [facility] [id number] [facility] 2021-07-21 09:30:00 2021-07-21 10:33:23 Outpatient R NAYELYYINGEDUINCHARLOTTE [facility] [id number] [facility] 2021-07-21 09:30:00 2021-07-21 10:33:23 Office Visit Charlotte Singleton IL[place] MANUFACTURING APPLICATIONS ENGINEER [facility] CHILD [facility] 1..114 350.1.13.10 4.2.7.2.686 [id number] [facility] 2021-07-21 09:30:00 2021-07-21 09:30:00 Outpatient R MARQUITAEDUINCHARLOTTE [facility] [id number] [facility] 2021-07-21 09:30:00 2021-07-21 09:30:00 Outpatient R MARQUITAEDUINCHARLOTTE [facility] [id number] [facility] 2021-06-16 08:30:00 2021-06-16 08:30:00 Outpatient R MARQUITAEDUIN [facility] [id number] [facility] 2021-06-16 00:00:00 2021-06-16 00:00:00 Orders Only Doctor Unassigned, [place] [facility] .114 350.1.13.10 4.2.7.2.686 [id number] [facility] 2021-04-29 00:00:00 2021-04-29 00:00:00 Patient Secure Msg Charlotte Singleton [facility] MANUFA[employer]URING APPLICATIONS ENGINEER [facility] & CHILD [facility] 1.840.114 350.1.13.10 4.2.7.2.686 [id number] [facility] 2020-07-16 00:00:00 2020-07-16 00:00:00 Patient Outreach William Rellcee Mcmanus [facility] 1.2840.114 350.1.13.10 4.2.7.2.686 [id number] [facility] 2020-01-24 15:00:00 2020-01-24 15:00:00 Outpatient R CHARLOTTE SINGLETON [facility] [id number] [facility] 2019-12-14 13:00:00 2019-12-14 13:00:00 Outpatient R [facility] [id number] [facility] 2019-11-24 15:43:56 2019-11-24 16:52:57 Office Visit Charlotte Singleton [facility] MANUFACTURING APPLICATIONS ENGINEER [facility] & CHILD [facility] 1.840.114 350.1.13.10 4.2.7.2.686 [id number] [facility] 2019-11-24 15:45:00 2019-11-24 15:45:00 Outpatient R CHARLOTTE SINGLETON [facility] [id number] [facility] 2019-11-24 00:00:00 2019-11-24 00:00:00 Orders Only Doctor Unassigned, [place] [facility] 1.84.114 350.1.13.10 4.2.7.2.686 [id number] [facility] 2019-11-22 00:00:00 2019-11-22 00:00:00 Telephone Von [place] [facility] MANUFACTURING APPLICATIONS ENGINEER [facility] CHILD [facility] 1.840.114 350.1.13.10 4.2.7.2.686 [id number] [facility] 2015-10-03 16:16:00 2015-10-03 18:04:00 Emergency Center [facility] [facility] [id number] 00 Giancarlo Beltre Results Test Description Test Time Test Comments Results Result Co [facility]ments [id number] 14:25:00* Test Item Value Reference Range Interpretation Comme nts POCT PREG (test code = 1605) Positive On board controls acceptable with C Line (test code = 3574) Yes POCT PREG LOT # (test code = 3575) POCT PREG TEST DATE ( test code = 3576) [facility] [id number] 16:51:00* Test Item Value Reference Range Interpretation Comme nts UA Bacteria (test code = UA Bacteria) None Seen (10/03/15 11:51 AM) UA RBC (test code = UA RBC) 0-2 /HPF <=2 UA WBC (test code = UA WBC) 0-2 /HPF UA Sq Epi (test code = UA Sq Epi) Occasional /LPF UA Leuk Est (test code = UA Leuk Est) Negative (10/03/15 11:51 AM) UA Nitrite (test code = UA Nitrite) Negative (10/03/15 11:51 AM) UA Glucose (test code = UA Glucose) Negative (10/03/15 11:51 AM) UA Protein (test code = UA Protein) Negative (10/03/15 11:51 AM) UA Urobilinogen (test code = UA Urobilinogen) 0.2 0.1-1.0 UA Blood (test code = UA Blood) Small *ABN*(10/03/15 11:51 AM) UA Bili (test code = UA Bili) Negative *NA*(10/03/15 11:51 AM) UA Ketones (test code = UA Ketones) Negative *NA*(10/03/15 11:51 AM) UA pH (test code = UA pH) 7.0 1 5.0-8.0 UA Spec Grav (test code = UA Spec Grav) 1.010 1 UA Turbidity (test code = UA Turbidity) Clear (10/03/15 11:51 AM) UA Color (test code = UA Color) Yellow *NA*(10/03/15 11:51 AM) Andrew Armenta [id number] 16:51:00* Test Item Value Reference Range Interpretation Comme nts U Preg (test code = U Preg) Negative (10/03/15 11:51 AM) [facility] [id number] 16:45:00* Test Item Value Reference Range Interpretation Comme [facility] CK-MB INDEX (test code = CK-MB INDEX) no gt <=2.5 Troponin-I (test code = Troponin-I) no gt <=0.40 CK MB (test code = CK MB) no gt 0.5-3.6 Total CK (test code = Total CK) 94 12-191 [facility] [id number] 16:45:00* Test Item Value Reference Range Interpretation Comme nts Total Protein (test code = T otal Protein) 7.4 6.4-8.4 ASPARTATE TRANSAMINASE (test code = ASPARTATE TRANSAMINASE) 9 <=37 Calcium Lvl (test code = Calcium Lvl) 7.9 8.5-10.5 Bili Total (test code = Bili Total) 0.5 0.2-1.3 eGFR (test code = eGFR) 112 AGAP (test code = AGAP) 8.9 10.0-20.0 A/G Ratio (test code = A/G Ratio) 0.9 0.7-1.6 B/C Ratio (test code = B/C Ratio) 11 6-25 Globulin (test code = Globulin) 3.8 2.0-4.0 Albumin Lvl (test code = Albumin Lvl) 3.6 3.5-5.0 ALANINE AMINOTRANSFERASE (te st code = ALANINE AMINOTRANSFERASE) 15 <=65 CO2 (test code = CO2) 27 24-32 Potassium Lvl (test code = P otassium Lvl) 3.9 3.5-5.1 Chloride Lvl (test code = Chloride Lvl) 109 95-109 Sodium Lvl (test code = Sodium Lvl) 141 135-145 Creatinine Lvl (test code = Creatinine Lvl) 0.75 0.50-1.40 BUN (test code = BUN) 8 7-22 Glucose Lvl (test code = Glucose Lvl) 98 70-99 Alk Phos (test code = Alk Phos) 77 39-136 [facility] [id number] 16:45:00* Test Item Value Reference Range Interpretation Comme nts Segs (test code = Segs) 65.0 45.0-75.0 Monocytes (test code = Monocytes) 5.9 2.0-12.0 Lymphocytes (test code = Lymphocytes) 27.1 20.0-40.0 Basophils (test code = Basophils) 0.9 <=1.0 Eosinophils (test code = Eosinophils) 1.1 <=4.0 Eosinophils # (test code = Eosinophils #) 0.1 <=0.5 Basophils # (test code = Basophils #) 0.1 <=0.2 Monocytes # (test code = Monocytes #) 0.4 <=0.8 Lymphocytes # (test code = Lymphocytes #) 1.7 1.0-5.5 Segs-Bands # (test code = Se gs-Bands #) 4.0 1.5-8.1 Platelet (test code = Platelet) 255 133-450 MPV (test code = MPV) 9.9 7.4-10.4 Hct (test code = Hct) 42.5 36.0-48.0 MCV (test code = MCV) 89.8 80.0-98.0 RBC X 10x6 (test code = RBC X 10x6) 4.74 4.20-5.40 WBC X 10x3 (test code = WBC X 10x3) 6.1 3.7-10.4 Hgb (test code = Hgb) 13.9 12.0-16.0 MCH (test code = MCH) 29.4 pg 27.0-31.0 MCHC (test code = MCHC) 32.7 32.0-36.0 RDW (test code = RDW) 13.6 11.5-14.5 [facility] Notes Date/Time Note Provider Source 2024-01-02 09:06:24 Patient dc home. Follow upw with pcp. Verbalized understanding. Signed paper work. 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 Pt notified of above and verbalized understanding. Concepcion Tenorio 04/21/2023 9:40 AM [facility] Concepcion Tenorio [facility] 2023-04-21 09:07:30 Called pt regarding missed diagnostic appt. Pt desires to reschedule on a Wednesday only due to her work schedule. Contacted [facility] coordinator. Sary Trevino RN 04/21/23 9:07 AM [facility] Sary Trevino RN [facility] 2023-04-15 14:29:32 Called pt regarding cancelled diagnostic appointment. No answer, left vm. Sary Trevino RN 04/15/23 2:30 PM [facility] 2015-10-03 11:53:16 Portable chest: The cardiomediastinal silhouette and pulmonary vasculature are within normal limits. The lungs and pleural spaces are clear. There are no acute osseous abnormalities. IMPRESSION: No acute radiographic abnormality in the chest. [id number] [facility]
[2024-01-26] MEDS ORDERED: GABAPENTIN 300 MG CAP ONE (14:02)
[2024-01-26] MEDS ORDERED: KETOROLAC 30 MG/ML INJ ONE (14:02)
--- NOTE | 2024-01-26 14:27 | RAD REPORT ---
EXAMINATION: CT CERVICAL SPINE WITHOUT CONTRAST CLINICAL INDICATION: Female, 33 years old. PAIN TECHNIQUE: Axial CT images through the cervical spine were obtained without intravenous contrast. Sag ittal and coronal reformatted images were created from the data set. One or more of the following dose reduction techniques were used: Automated exposure control, adjustment of the mA and/or kV accor ding to patient size, and/or iterative reconstruction. Unless otherwise specified, incidental findings do not require dedicated imaging follow-up. [id number]. COMPARISON: No prior exam. FINDINGS: ALIGNMENT: The cervical spine has normal alignment without scoliosis or spondylolisthesis. BONE: Vertebral body heights are maintained. No aggressive osseous lesions. DISCS: Moderate disc height loss at C5-6. LEVELS: Left eccentric disc protrusion and uncovertebral joint hypertrophy is present at C5-6. This r esults in moderate central spinal stenosis.. Mild left neural foraminal narrowing is present at C5-6. SOFT TISSUE: No significant abnormalities in the soft tissue of the neck. The visualized lung apices are clear. IMPRESSION: Left paracentral/foraminal disc protrusion and uncovertebral joint hypertrophy at C5-6 results in mod erate central spinal stenosis and left lateral recess stenosis. This is likely the source of the patient's radiculopathy. Cervical spine MRI could be considered to confirm.
--- NOTE | 2024-01-26 14:47 | ER ---
Nurse's Notes [facility] Name: Debra Sanchez Age: 33 yrs Sex: Female : 1990 Arrival Date: 01/26/2024 Time: 13:30 Bed 8 Private MD: Diagnosis: Cervical disc disorder with radiculopathy Presentation: 01/25 13:45 Chief complaint: Patient states: left arm pain for 3 weeks. Started in neck and left tm6 shoulder, traveling down to arm. Now left fingers are tingling. Came to ER about 2 weeks ago, got discharged with steroids and muscle relaxers, nothing has helped, has gotten worse. Coronavirus screen: Vaccine status: Patient reports being unvaccinated. Ebola Screen: Patient negative for fever greater than or equal to 101.5 degrees Fahrenheit, and additional compatible Ebola Virus Disease symptoms Patient denies exposure to infectious person. Patient denies travel to an Ebola-affected area in the 21 days before illness onset. No symptoms or risks identified at this time. Initial Sepsis Screen: Does the patient meet any 2 criteria? No. Patient's initial sepsis screen is negative. Does the patient have a suspected source of infection? No. Patient's initial sepsis screen is negative. Risk Assessment: Do you want to hurt yourself or someone else? Patient reports no desire to harm self or others. Onset of symptoms was January 05, 2024. 13:45 Method Of Arrival: Ambulatory tm6 13:45 Acuity: KYM 3 tm6 Triage Assessment: 13:47 General: Appears in no apparent distress. Behavior is calm, cooperative. Pain: tm6 Complains of pain in left arm, left shoulder, neck Pain currently is 7 out of 10 on a pain scale. Quality of pain is described as tingling, Pain began three weeks ago. Pain: Quality of pain is described as stabbing, squeezing. EENT: No signs and/or symptoms were reported regarding the EENT system. Neuro: Level of Consciousness is awake, alert, obeys commands, Oriented to person, place, time, situation. Neuro: Reports paresthesias in left hand since two weeks ago. Cardiovascular: Patient's skin is warm and dry. Respiratory: Airway is patent Respiratory effort is even, unlabored, Respiratory pattern is regular, symmetrical. GI: No signs and/or symptoms were reported involving the gastrointestinal system. Abdomen is round non-distended. : No signs and/or symptoms were reported regarding the genitourinary system. Derm: No signs and/or symptoms reported regarding the dermatologic system. Musculoskeletal: Reports pain in neck, left shoulder, left arm Pain is 7 out of 10 on a pain scale. 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 - Infectious Disease History:: Denies. - Social history:: Smoking status: Patient denies any tobacco usage or history of. Patient uses alcohol, occasionally. - Family history:: not pertinent. - Hospitalizations: : No recent hospitalization is reported. Screenin:15 [facility] ED Fall Risk Assessment (Adult) History of falling in the last 3 months, ph including since admission No falls in past 3 months (0 pts) Confusion or Disorientation No (0 pts) Intoxicated or Sedated No (0 pts) Impaired Gait No (0 pts) Mobility Assist Device Used No (0 pt) Altered Elimination No (0 pt) Score/Fall Risk Level 0 - 2 = Low Risk Oriented to surroundings, Maintained a safe environment, Hourly rounding (assess needs \T\ fall precautionary measures) done. Abuse screen: Denies threats or abuse. Denies injuries from another. Nutritional screening: No deficits noted. Tuberculosis screening: No symptoms or risk factors identified. Assessment: 14:14 General: Appears in no apparent distress. Behavior is calm, cooperative. ph 14:14 Pain: Complains of pain in left trapezius Pain radiates to left arm. Neuro: Level of ph Consciousness is awake, alert, obeys commands, Oriented to person, place, time, situation, Reports numbness in left arm. Cardiovascular: Capillary refill < 3 seconds in bilateral fingers Patient's skin is warm and dry. Respiratory: Airway is patent Respiratory effort is even, unlabored. GI: No signs and/or symptoms were reported involving the gastrointestinal system. Derm: Skin is pink, warm \T\ dry. Vital Signs: 13:45 Temp 97.2(TE); tm6 15:11 BP 137 / 85; Pulse 71; Resp 16; Temp 98; Pulse Ox 99% ; bp ED Course: 13:33 Patient arrived in ED. mg5 13:36 Tramaine Waddell MD is Attending Physician. rn 13:47 Triage completed. tm6 13:47 Arm band placed on right wrist. tm6 13:56 Rick Reyes, RN is Primary Nurse. bp 14:03 CT C Spine In Process Unspecified. EDMS 14:15 Patient has correct armband on for positive identification. Bed in low position. Call ph light in reach. Side rails up X 1. Pulse ox on. NIBP on. Door closed. Noise minimized. Warm blanket given. Pillow given. PO fluids given. 15:10 No provider procedures requiring assistance completed. Patient did not have IV access bp during this emergency room visit. Administered Medications: 14:13 Drug: Gabapentin PO 300 mg PO once Route: PO; ph 15:11 Follow up: Response: No adverse reaction bp 14:14 Drug: Ketorolac IM 30 mg IM once Route: IM; Site: right vastus lateralis; ph 15:11 Follow up: Response: No adverse reaction bp Medication: 14:15 VIS not applicable for this client. ph Outcome: 14:46 Discharge ordered by . rn 15:10 Discharged to home ambulatory, bp 15:10 Condition: stable 15:10 Discharge instructions given to patient, Instructed on discharge instructions, follow up and referral plans. medication usage, Demonstrated understanding of instructions, follow-up care, medications, Prescriptions given X 2, 15:11 Patient left the ED. bp Signatures: Dispatcher [employer] EDPA Tramaine Waddell MD MD rn Hall, Patricia, RN RN ph Rick Reyes, BROWN RN bp Lashawn Do mg5 Jayne Prakash RN RN tm6
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
[2024-01-27 05:11] VITALS: BP 137/85; TEMP 98; O2SAT 99
== END 2024-01-26 15:11 | disposition home or self-care (01) ==
LOC: ER 13:30
DX: M54.12 Radiculopathy, cervical region (principal); M53.82 Other specified dorsopathies, cervical region
CPT/HCPCS: 72125; 96372; 99284